=== PATIENT | male | born 1985 | race Two or more races ===

== ENCOUNTER 2021-05-11 12:09 | Outpatient (CLI) | payer OTHER ==
[~2021-05-11 12:09] MED LIST: NEURONTIN300 MG PO; PERCOCET 5/3251 TAB PO; POLY119PG PO; ZOFRAN ODT4 MG/UDTAB PO
== END 2021-05-11 12:12 | disposition home or self-care (01) ==
LOC: LAB 12:09
PROVIDERS: ATTEND Obstetrics & Gynecology
DX: Z20.818 Contact with and (suspected) exposure to other bacterial communicable diseases (principal); Z20.828 Contact with and (suspected) exposure to other viral communicable diseases